=== PATIENT | male | born 1985 | race Two or more races ===

== ENCOUNTER 2017-04-13 11:16 | Emergency (ER) | payer SELFPAY ==
[2017-04-13 11:31] VITALS: BMI 27.9
--- NOTE | 2017-04-13 11:34 | PDOC ---
Attending Attestation - Resident Resident Name: Juan Carlos Shultz - ED Attending Attestation I have performed the following: I have examined & evaluated the patient, The case was reviewed & discussed with the resident, I agree w/resident's findings & plan, Exceptions are as noted - HPI HPI: 04/13/17 11:33 Abdominal Pain Nausea and Vomiting - Physicial Exam PE: 04/13/17 11:33 VSS, NONTOXIC, NAD - Medical Decision Making 04/13/17 11:[address] Shultz's Assessment and Plan
[2017-04-13] MEDS ORDERED: SODIUM CHLORIDE 1,000 ML IV STA (11:40)
[2017-04-13] MEDS ORDERED: ONDANSETRON 4 MG/2 ML VIAL IVPUSH ONE (11:40)
--- NOTE | 2017-04-13 11:50 | PDOC ---
History of Present Illness - General Chief Complaint: Pain Stated Complaint: ABD PAIN Time Seen by Provider: 04/13/17 11:25 History Source: Patient Exam Limitations: No Limitations - History of Present Illness Initial Comments: 04/13/17 12:10 32 y.o. M with pmh of right inguinal hernia repair presenting with 10 day hx of abdominal pain. Patient states the pain is LLQ radiating across entire abdomen, 04/08, constant, sharp. Patient saw his PCP 7 days ago and received 2 days of abx (patient unsure what) with no relief. Patient states he has not eaten in 1 week and endorses multiple episodes of nausea and vomiting. Patient also endorses chills and occasional dark stool. Last bowel movement was today. Patient denies fever, chest pain, sob, dysuria, hematuria, back pain. PSH: inguinal hernia repair All: NKDA SH: occasional smoking infrequently PCP- does not have one Past History - Past Medical History Allergies/Adverse Reactions: Allergies Allergy/AdvReac Type Severity Reaction Status Date / Time No Known Allergies Allergy Verified 04/13/17 11:23 Home Medications: Ambulatory Orders NK [No Known Home Medication] 04/13/17 Thyroid Disease: No - Suicide/Smoking/Psychosocial Hx Smoking History: Current every day smoker Number of Cigarettes Smoked Daily: 3 Information on smoking cessation initiated: No Hx Alcohol Use: No Drug/Substance Use Hx: No Substance Use Type: None Review of Systems - Review of Systems Able to Perform ROS?: Yes Comments:: 04/13/17 12:10 GENERAL/CONSTITUTIONAL: No fever, +chills. No weakness. HEAD, EYES, EARS, NOSE AND THROAT: No change in vision. No ear pain or discharge. No sore throat. CARDIOVASCULAR: No chest pain or shortness of breath RESPIRATORY: No cough, wheezing, or hemoptysis. GASTROINTESTINAL: +nausea, +vomiting, No diarrhea or constipation. +abdominal pain GENITOURINARY: No dysuria, frequency, or change in urination. MUSCULOSKELETAL: No joint or muscle swelling or pain. No neck or back pain. SKIN: No rash NEUROLOGIC: No headache, vertigo, loss of consciousness, or change in strength/ sensation. ENDOCRINE: No increased thirst. No abnormal weight change HEMATOLOGIC/LYMPHATIC: No anemia, easy bleeding, or history of blood clots. ALLERGIC/IMMUNOLOGIC: No hives or skin allergy. *Physical Exam - Vital Signs Last Vital Signs Temp Pulse Resp BP Pulse Ox 97.9 F 63 18 145/95 100 04/13/17 11:23 04/13/17 11:23 04/13/17 11:23 04/13/17 11:23 04/13/17 11:23 - Physical Exam Comments: 04/13/17 12:10 GENERAL: Awake, alert, and fully oriented, in no acute distress HEAD: No signs of trauma, normocephalic, atraumatic EYES: PERRLA, EOMI, sclera anicteric, conjunctiva clear ENT: Auricles normal inspection, hearing grossly normal, nares patent, oropharynx clear without exudates. Moist mucosa NECK: Normal ROM, supple, no lymphadenopathy, JVD, or masses LUNGS: No distress, speaks full sentences, clear to auscultation bilaterally HEART: Regular rate and rhythm, normal S1 and S2, no murmurs, rubs or gallops, peripheral pulses normal and equal bilaterally. ABDOMEN: Soft, +tenderness superior to umbilicus, normoactive bowel sounds. No guarding, no rebound. No masses EXTREMITIES: Normal inspection, Normal range of motion, no edema. No clubbing or cyanosis. NEUROLOGICAL: Cranial nerves II through XII grossly intact. Normal speech, normal gait, no focal sensorimotor deficits SKIN: Warm, Dry, normal turgor, no rashes or lesions noted. ED Treatment Course - LABORATORY CBC & Chemistry Diagram: 04/13/17 12:11 04/13/17 12:11 Medical Decision Making - Medical Decision Making 04/13/17 12:15 32 y.o. M with pmh of right inguinal hernia repair presenting with 10 day hx of abdominal pain. Plan: CBC, CMP, Lactic acid, Lipase, IVF, Sx control, UA, Ucx 04/13/17 12:50 Hgb- 17.7 elevated T bili elevated ALT 04/13/17 14:38 Abdominal u/s negative 04/13/17 15:34 UA negative. Patient feels better. Patient stable for d/c *DC/Admit/Observation/Transfer Diagnosis at time of Disposition: Abdominal pain Qualifiers: Abdominal location: periumbilical Qualified Code(s): R10.33 - Periumbilical pain; R10.33 - Periumbilical pain - Discharge Dispostion Disposition: HOME Condition at time of disposition: Stable - Referrals Referrals: Yossi Peterson MD [Staff Physician] - - Patient Instructions Printed Discharge Instructions: DI for Abdominal Pain-Adult Additional Instructions: Follow up with a learning coordinator regarding your liver numbers. A referral has been provided for you. If you have chest pain, shortness of breath, or any new/worsening symptoms please come back to the hospital immediately.
[2017-04-13] MEDS ORDERED: ONDANSETRON 4 MG/2 ML VIAL ONE (12:16)
[2017-04-13 12:17] LABS: BASOPHIL 0.4 % (0-2.0); EOSINOPHIL 4.9 % (0-4.5); MCH 26.5 pg (25.7-33.7); MCHC 33.2 g/dl (32.0-35.9); MEAN CELL VOLUME 79.7 fl (80-96); MEAN PLT VOLUME 8.8 fl (7.5-11.1); NEUTROPHILS 39.6 % (42.8-82.8); PLATELET COUNT 287 K/MM3 (134-434); RDW 13.1 % (11.9-15.9); WHITE BLOOD COUNT 8.4 K/mm3 (4.0-10.0)
[2017-04-13] MEDS ORDERED: morphine CARPU-JECT 4 MG/1 ML DISP.SYRIN IVPUSH ONE (12:27)
[2017-04-13] MEDS ORDERED: morphine CARPU-JECT 2 MG/1 ML DISP.SYRIN ONE (12:37)
[2017-04-13 12:43] LABS: ALBUMIN 4.3 g/dl (3.4-5.0); ALK PHOS 114 U/L (45-117); ANION GAP 10 (8-16); BILIRUBIN,TOTAL 2.7 mg/dL (0.2-1.0); CALCIUM 9.4 mg/dL (8.5-10.1); CO2 27 mmol/L (21-32); CREATININE 0.8 mg/dL (0.7-1.3); GLUCOSE,RANDOM 86 mg/dL (74-106); SGOT/AST 28 U/L (15-37); SGPT/ALT 104 U/L (12-78); TOT PROT 8.4 g/dl (6.4-8.2)
[2017-04-13 15:19] LABS: URINE APPEARANCE CLEAR; URINE BILIRUBIN NEGATIVE (NEGATIVE); URINE BLOOD NEGATIVE (NEGATIVE); URINE COLOR YELLOW; URINE GLUCOSE (UA) NEGATIVE (NEGATIVE); URINE KETONE TRACE (NEGATIVE); URINE NITRITE NEGATIVE (NEGATIVE); URINE PROTEIN NEGATIVE (NEGATIVE); URINE UROBILINOGEN 4.0 E.U/dl mg/dL (0.2-1.0)
[2017-04-13 16:09] VITALS: BP 132/78; PULSE 84; TEMP 98.4
[2017-04-13 17:19] LABS: URINE LEUK ESTERASE Negative (NEGATIVE)
== END 2017-04-13 16:38 | disposition home or self-care (01) ==
LOC: JER 11:16
PROC: 3E033NZ Introduction of Analgesics, Hypnotics, Sedatives into Peripheral Vein, Percutaneous Approach (ICD-10-PCS; principal; 2017-04-13)
PROC: 3E033GC Introduction of Other Therapeutic Substance into Peripheral Vein, Percutaneous Approach (ICD-10-PCS; 2017-04-13)
DX: R10.33 Periumbilical pain (principal); F17.210 Nicotine dependence, cigarettes, uncomplicated
CPT/HCPCS: 36415; 76700-TC; 80053; 81003; 83605; 83690; 85025; 87086; 99283-25